=== PATIENT | female | born 1955 | race Caucasian/White ===

== ENCOUNTER 2022-12-04 06:12 | Day surgery (SDC) | payer MEDICARE, BC ==
[2022-12-04] MEDS ORDERED: fentaNYL 100 MCG/2 ML SDV ONE (06:44)
[2022-12-04] MEDS ORDERED: Propofol 200 MG/20 ML SDV ONE (06:45)
[2022-12-04] MEDS ORDERED: Dextrose 5%-Lactated Ringers 1,000 ML IV SCH (07:00)
[2022-12-04 09:54] VITALS: BP 156/82; PULSE 76
== END 2022-12-04 09:56 | disposition home or self-care (01) ==
LOC: JP.SDS 06:12
PROVIDERS: ATTEND Surgery
DX: Z12.11 Encounter for screening for malignant neoplasm of colon (principal); D12.3 Benign neoplasm of transverse colon; E78.00 Pure hypercholesterolemia, unspecified; Z90.49 Acquired absence of other specified parts of digestive tract; Z79.899 Other long term (current) drug therapy; Z87.42 Personal history of other diseases of the female genital tract
CPT/HCPCS: 45385; 88305; J2704; J3010; J7121